=== PATIENT | female | born 1955 | race Native Hawaiian/Other Pacific Islander ===

== ENCOUNTER 2020-12-05 20:57 | Emergency (ER) | payer OTHER ==
[~2020-12-05] VITALS: Ht 157.5 cm; Wt 80.7 kg
[2020-12-05] MEDS ORDERED: PHEN50CH2 PO (21:19)
[2020-12-05] MEDS ORDERED: PHENYTOIN EX100 MG PO (21:23)
[2020-12-05 22:25] VITALS: BP 147/64; TEMP 101.1
--- NOTE | 2020-12-08 11:05 | NUR ---
1105- PATIENT CALLED TO FIND OUT COVID RESULTS. AFTER VERIFYING DATE OF , PATIENT WAS GIVEN RESULTS. WHEN ASKED IF PATIENT NEEDED A COPY OF RESULTS SHE STATED,"NO, I'M AT [facility] NOW GETTING THE INFUSION AND THEY DID A RAPID TEST ON ME AND IT SHOWED POSITIVE." NO OTHER QUESTIONS OR CONCERNS VOICED AT THIS TIME.
== END 2020-12-05 22:25 | disposition home or self-care (01) ==
LOC: ED 20:57
DX: J06.9 Acute upper respiratory infection, unspecified (principal); U07.1 COVID-19; J12.82 Pneumonia due to coronavirus disease 2019; R50.9 Fever, unspecified
CPT/HCPCS: 87635; 96372; 99283; J1100; U0003